=== PATIENT | female | born 1990 | race Caucasian/White ===

== ENCOUNTER 2019-03-30 02:52 | Emergency (ER) | payer OTHER ==
[~2019-03-30] VITALS: Ht 170.2 cm; Wt 101.0 kg
--- NOTE | 2019-03-30 03:21 | NUR ---
THIS IS A 29 YO FEMALE COMING IN FOR LEFT SIDED CHEST AND SHOUDLER PAIN. PATIENT STATES PAIN IS LOCATED UNDER LEFT BREAST AND GOES IN TO LEFT NECK AND SHOULDER THAT SHE WOKE UP WITH SATURDAY AND WAS INTERMITTENT THROUGHOUT THE FEW DAYS, AND CONSTANT TONIGHT. PATIENT DESCRIBES PAIN SHARP AND STABBING, TENDER TO PALPATION TO LEFT SHOULDER, RATED 7/10 PAIN. DENIES SOB, DENIES N/V OR SWEATING. PATIENT DENIES ANY MEDICAL OR SURGICAL HX. ALL MONITORING IN PLACE, NSR ON MONITOR. CALL LIGHT IN REACH, DENIES NEEDS AT THIS TIME.
[2019-03-30 03:38] LABS: MEAN CORPUSCULAR HEMOGLOBIN 32.3 pg (27.0-34.8); MEAN CORPUSCULAR HGB CONC 33.9 g/dL (32.4-35.8); MEAN CORPUSCULAR VOLUME 95.2 fL (80-100); MEAN PLATELET VOLUME 7.7 fL (7.4-10.4); PLATELET COUNT 265 x10^3/uL (130-400); RED BLOOD COUNT 4.56 x10^6/uL (3.82-5.3); RED CELL DISTRIBUTION WIDTH 12.6 % (9.6-15.2)
[2019-03-30 03:49] LABS: ALBUMIN 3.5 g/dL (3.4-5.0); ANION GAP 7 mmol/L (5-15); CALCIUM 8.8 mg/dL (8.5-10.1); CHLORIDE 106 mmol/L (98-107); CREATININE 0.78 mg/dL (0.55-1.02)
[2019-03-30 03:53] LABS: TROPONIN I < 0.015 ng/mL (0.000-0.045)
[2019-03-30 03:56] LABS: BASOPHILS # (AUTO) 0.05 x10^3/uL (0-0.1); BASOPHILS % (AUTO) 1 % (0-1); EOSINOPHILS # (AUTO) 0.25 x10^3/uL (0-0.4); EOSINOPHILS % (AUTO) 2 % (1-7); LYMPHOCYTES # (AUTO) 2.44 x10^3/uL (1-3.4); LYMPHOCYTES % (AUTO) 24 % (22-44); MD SCAN; MONOCYTES # (AUTO) 1.47 x10^3/uL (0.2-0.8); MONOCYTES % (AUTO) 14 % (2-9); NEUTROPHILS # (AUTO) 6.14 x10^3/uL (1.8-6.8); NEUTROPHILS % (AUTO) 59 % (42-75)
--- NOTE | 2019-03-30 04:00 | NUR ---
REPORT GIVEN TO HUY JORDAN. PLAN OF CARE DISCUSSED.
--- NOTE | 2019-03-30 04:03 | NUR ---
REPORT RECEIVED FROM DELROY Araiza RN. PT RESTING ON GURNEY IN NO APPARNT DISTRESS. VSS. ALL MONITORING IN PLACE, CALL LIGHT WITHIN REACH, BED IN LOWEST POSITION WITH X2 RAILS RAISED, LIGHTS DIMMED FOR PT COMFORT.
[2019-03-30 05:21] VITALS: BP 128/91
== END 2019-03-30 05:24 | disposition home or self-care (01) ==
LOC: ED 05:15
DX: R07.89 Other chest pain (principal); M25.512 Pain in left shoulder; Z72.89 Other problems related to lifestyle
CPT/HCPCS: 36415; 71045; 80048; 82040; 84484; 84703; 85025; 93005; 99284